=== PATIENT | male | born 1985 | race Caucasian/White ===

== ENCOUNTER 2017-01-31 12:28 | Day surgery (SDC) | payer OTHER ==
[~2017-01-31] VITALS: Ht 175.3 cm; Wt 69.0 kg
[~2017-01-31 12:28] MED LIST: ALPR1TAB7 PO; DICY10CA60 PO; OXYC-284 PO; POLY17PO6 PO
[2017-01-31 14:11] VITALS: Ht 175.3 cm; Wt 69.0 kg
[2017-01-31] MEDS ORDERED: RTPRO5 IH (14:21)
[2017-01-31] MEDS ORDERED: QUET100T PO (14:21)
[2017-01-31] MEDS ORDERED: DOCU-144 PO (14:21)
[2017-01-31] MEDS ORDERED: MIRT30TA7 PO (14:21)
[2017-01-31] MEDS ORDERED: OMEP20CA16 PO (14:21)
[2017-01-31] MEDS ORDERED: LINA72CA PO (14:21)
[2017-01-31] MEDS ORDERED: ADV50050 INHALATION (14:21)
[2017-01-31 14:31] VITALS: BP 137/67; PULSE 66; RESP 12
--- NOTE | 2017-01-31 15:02 | OPPN ---
Date/Time of Note Date/Time of Note DATE: 01/31/17 TIME: 14:56 Proc Note GI Procedure Date 01/31/17 Indication: other (Abdominal pain) Pre-procedure Diagnosis Abdominal pain Post-procedure Diagnosis Impression: Erosive distal esophagitis Moderate gastritis. Rule out H. pylori infection. Biopsies obtained Moderate duodenitis Biopsy second portion of the knee rule out celiac disease Plan: Switch to Protonix 40 mg daily Review pathology Follow-up as previously scheduled . Procedure Performed: Endoscopy (Plus biopsies) Surgeon LASHONDA GREEN MD See signature line [employer]er none Anesthesia Type: MAC Anesthesiologist: SARAH ALBERTO MD Tourniquet Time none EBL none Transfusion required none Biopsy 1: Second portion of the duodenum/rule out celiac disease Biopsy 2: Gastric antrum and body/rule out peptic ulcer disease Grafts/Implants none Tubes/Drains none Complication(s) none Disposition: home Procedure Description Preoperative Diagnosis: After informed consent, with the patient/relatives understanding the procedure, its indications, potential risks and complications, including but not limited to : allergic reaction, bleeding, perforation or infection, and after all pertinent questions were answered to the patients satisfaction, the patient/ relatives signed witnessed informed consent. Following this, premedication was administered slowly IV push under careful cardiovascular and respiratory monitoring with pulse oximetry, automatic blood pressure, and secured entrance monitor. Once the sedative effect was achieved the patient was place in the left lateral decubitus, the panendoscope was introduced and advanced under visual control. Careful examination of the upper gastrointestinal tract, both on insertion as well as withdrawal of the instrument disclosing the following findings: ESOPHAGUS: the mucosa of the entire esophagus was carefully examined and showed the following findings: There is erythema, edema and erosion of the mucosa of the e.g. junction. Otherwise the mucosa appears within normal limits. There is no evidence of varices, neoplasm, or stricture. No Hiatal Hernia identified. STOMACH: Upon entrance to the stomach air was insufflated, the gastric robles distended normally. The mucosa of the fundus, body and antrum of the stomach was carefully examined both head-on and on retroflexion, and showed the following findings: There is moderate erythema and edema of the mucosa of the body and antrum of the stomach. Biopsies were obtained to rule out H. pylori infection. Otherwise the mucosa appears within normal limits with no abnormalities. There is no evidence of ulcers or neoplasm. PYLORUS: The pylorus was carefully examined and showed the following findings: the pylorus appears patent and within normal limits, with no evidence of gastric outlet obstruction. DUODENUM: The duodenal mucosa was carefully examined in the duodenal bulb as well as the second portion of the duodenum and showed the following findings: There is moderate erythema and edema the mucosa of the duodenal bulb. Otherwise the mucosa appears unremarkable with no evidence of ulcer or neoplasm. Random biopsies were obtained second portion of duodenum to rule out celiac disease. Copies To: CC: LASHONDA GREEN MD, MORDO MD Jan 31, 2017 15:02
--- NOTE | 2017-01-31 15:06 | OPPN ---
Date/Time of Note Date/Time of Note DATE: 01/31/17 TIME: 15:03 Proc Note GI Procedure Date 01/31/17 Indication: other (Abdominal pain/thickened rectal wall on CT) Pre-procedure Diagnosis Abdominal pain/thickened rectal wall on CT Post-procedure Diagnosis Impression: Normal colonic mucosa throughout. Moderate-sized internal hemorrhoids Random biopsies were obtained right colon, left colon and rectum Plan: Review pathology Follow-up as previously scheduled Procedure Performed: Colonoscopy (With biopsies) Surgeon LASHONDA GREEN MD See signature line Supervisor [employer] none Anesthesia Type: MAC Anesthesiologist: SARAH ALBERTO MD Tourniquet Time none EBL none Transfusion required none Biopsy 1: Right side of the colon Biopsy 2: Left side of the colon Biopsy 3: Rectum Grafts/Implants none Tubes/Drains none Complication(s) none Disposition: home Procedure Description After informed consent, with the patient/relatives understanding the procedure, its indications and potential risks and complications, including but not limited to: Allergic reaction, bleeding, perforation, infection, and after all pertinent questions were answered to the patient's satisfaction, the patient/ relatives signed the witnessed informed consent. Following this, premedication was administered slowly IV push under careful cardiovascular and respiratory monitoring with pulse OXIMETRY, automatic blood pressure, and imitation marble mechanic. Once the sedative effect was achieved, the patient was placed in the left lateral decubitus position, digital rectal examination was performed. The colonoscope was then introduced and advanced under visual control throughout all segments of the colon including: []the rectum, sigmoid, descending colon, splenic flexure, transverse colon, hepatic flexure, ascending colon and finally reaching the cecum which was clearly identified by transillumination, finger indentation and the ileocecal valve. Careful examination of the mucosa of the lower gastrointestinal tract both on insertion as well as withdrawal of the instrument disclosed the following findings: PREPARATION QUALITY: [Adequate], RECTAL EXAM: The anorectal area was visualized examined and digital rectal examination performed with the following findings: No evidence of perirectal disease, no masses. COLONIC MUCOSA: The mucosa of all segments of the colon was carefully examined and showed the following findings: the examined mucosa appears within normal limits. There is no evidence of inflammatory changes, diverticular formation, polyps or other neoplasms, vascular malformation, or any other abnormality. Random biopsies were obtained of the right colon, left colon in the rectum. Moderate-sized internal hemorrhoids are present The instrument was then withdrawn, the patient tolerated the procedure well and was transferred out of the Endoscopy Suite awake and in good condition to continue recovery under observation. Copies To: CC: LASHONDA GREEN MD, MORDO MD Jan 31, 2017 15:06
[2017-01-31] MEDS ORDERED: morphine 2 MG INJ ONE (15:15)
[2017-01-31 15:34] VITALS: BP 119/79; RESP 14
[2017-01-31] MEDS ORDERED: PROPOFOL 40 ML ONE (16:01)
== END 2017-01-31 15:51 | disposition home or self-care (01) ==
LOC: GIL 12:28
PROVIDERS: ATTEND Internal Medicine Gastroenterology
DX: K20.8 Other esophagitis (principal); K29.60 Other gastritis without bleeding; K29.80 Duodenitis without bleeding; K64.8 Other hemorrhoids; J45.909 Unspecified asthma, uncomplicated; F41.8 Other specified anxiety disorders; Z87.891 Personal history of nicotine dependence
CPT/HCPCS: 43239; 45380; 88305; 88312; J2270; Z7610